=== PATIENT | female | born 1930 ===

== ENCOUNTER 2018-07-27 16:14 | Emergency (ER) | payer MEDICARE, OTHER ==
[2018-07-27 16:14] VITALS: BMI 22.8
--- NOTE | 2018-07-27 18:18 | ED PDOC ---
HPI: Back Time Seen by Provider: 07/27/18 17:06 Chief Complaint (Nursing): Back Pain Chief Complaint (Provider): Neck pain History Per: Patient History/Exam Limitations: no limitations Onset/Duration Of Symptoms: Days (1) Additional Complaint(s): Patient is a 88 y/o female who presents to the ED complaining of worsened neck pain with associated headaches and tingling to her arms since last night. Patient states she had a seizure and since then she has been experiencing all these pain symptoms. Patient appears to be a poor historian with poor insight to her medical conditions. She states that she has been having seizures ever since she received antibiotics for abdominal infection. However, patient is unable to state what the antibiotic medication was, what infection she had, or which shey doll gave her the prescription. Additionally patient reports she had a broken neck and was supposed to be fitted for a neck brace but the brace never arrived. Patient lives alone and has tried to get living assistance but has not received approval by insurance. The last time she was seen by a doctor was [facility] where patient reports that a doctor tried to perform heart surgery on her from the ED; patient has refused to see doctor since then. Patient has a bag of medications and is unable to state why she takes medication or why she is supposed to; she states she doesn't take most because claims they cause seizures. Patient reports she has been having palpitations and feels like her chest is "shaky." Past Medical History Reviewed: Historical Data, Nursing Documentation, Vital Signs Vital Signs: Last Vital Signs Temp 98.6 F 07/27/18 16:20 Pulse 71 07/27/18 16:20 Resp 18 07/27/18 16:20 BP 140/70 07/27/18 16:20 Pulse Ox 98 07/27/18 16:20 - Medical History PMH: Anxiety, Arthritis (chronic hip arthritis), COPD, Hypothyroidism, Multiple Sclerosis, Osteoporosis, Rheumatoid Arthritis Denies: Chronic Kidney Disease - Surgical History Surgical History: Appendectomy, Cholecystectomy - Family History Family History: States: Unknown Family Hx - Immunization History Hx Tetanus Toxoid Vaccination: No Hx Influenza Vaccination: No Hx Pneumococcal Vaccination: No - Home Medications Home Medications: Ambulatory Orders Medication Instructions Recorded Cyclobenzaprine 10 mg PO DAILY 06/12/13 Alprazolam [Xanax] 0.5 mg PO Q12H PRN 06/06/17 Ibuprofen [Motrin] 600 mg PO Q6 PRN #20 tab 06/06/17 Aspirin [Ecotrin] 81 mg PO DAILY #30 06/14/17 Carvedilol [Coreg] 3.125 mg PO BID #60 tab 06/14/17 Clopidogrel [Plavix] 75 mg PO DAILY #30 tab 06/14/17 Levothyroxine [Synthroid] 88 mcg PO DAILY@0630 #30 tab 06/14/17 Losartan [Cozaar] 50 mg PO DAILY #30 tab 06/14/17 Rosuvastatin Calcium [Crestor] 5 mg PO HS #30 tab 06/14/17 Spironolactone [Aldactone] 25 mg PO DAILY #30 tab 06/14/17 - Allergies Allergies/Adverse Reactions: Allergies Allergy/AdvReac Type Severity Reaction Status Date / Time No Known Allergies Allergy Unverified 07/27/18 16:19 Review of Systems ROS Statement: Except As Marked, All Systems Reviewed And Found Negative Constitutional: Negative for: Fever Cardiovascular: Positive for: Palpitations Musculoskeletal: Positive for: Neck Pain Neurological: Positive for: Numbness (tingling in arms), Headache Physical Exam - Reviewed Nursing Documentation Reviewed: Yes Vital Signs Reviewed: Yes - Physical Exam Appears: Positive for: Non-toxic, No Acute Distress (seen on stretcher) Head Exam: Positive for: ATRAUMATIC, NORMOCEPHALIC Skin: Positive for: Normal Color, Warm, DRY Eye Exam: Positive for: EOMI, Normal appearance, PERRL Neck: Positive for: Normal (loose fitting soft collar around neck that appears to provide no support), Painless ROM (Full ROM) Cardiovascular/Chest: Positive for: Regular Rate, Rhythm. Negative for: Murmur Respiratory: Positive for: Normal Breath Sounds. Negative for: Respiratory Distress Gastrointestinal/Abdominal: Positive for: Normal Exam, Soft. Negative for: Tenderness Back: Positive for: Normal Inspection, Vertebral Tenderness (tenderness to palpation on spine) Extremity: Positive for: Normal ROM (full ROM of all extremities), Other (no objective loss of strenght or sensation). Negative for: Pedal Edema, Deformity Neurologic/Psych: Positive for: Alert, primary montessori teacher II-XII (grossly intact), Oriented, C erebellar Tests (intact). Negative for: Motor/Sensory Deficits - Laboratory Results Result Diagrams: 07/27/18 18:13 07/27/18 18:13 - ECG O2 Sat by Pulse Oximetry: 98 (RA) Pulse Ox Interpretation: Normal Medical Decision Making Medical Decision Making: Time: 17:19 Initial Impression: Poor historian with numerous complaints including seizure ac tivity, neck pain, and palpitations Initial Plan: --Due to objective neurologic symptoms and headaches last night will obtain brain and C-spine CT --Basic labs --Reevaluation 2230 Labs, CT Brain, and CT neck show no acute injury. Rib series xrays show no acute problems. Pt to be discharged home. Provided referral to outpatient clinic. Pt given tray of food which she was able to eat without nausea/vomiting. Pt alert and oriented and ambulatory. Return parameters discussed with the patient. Scribe Attestation: Documented by Luis Jackson acting as a scribe for Jada Perez MD Provider Scribe Attestation: All medical record entries made by the Scribe were at my direction and personally dictated by me. I have reviewed the chart and agree that the record accurately reflects my personal performance of the history, physical exam, medical decision making, and the department course for this patient. I have also personally directed, reviewed, and agree with the discharge instructions and disposition. Disposition - Clinical Impression Clinical Impression: Neck pain - Disposition Referrals: [facility] [Outside] Disposition Time: 22:15 Condition: IMPROVED Additional Instructions: Your CT scan of the brain and neck show no new injuries or abnormalities. Your blood work is normal. You have been given medication for nausea and pain and have since been able to eat solid food without difficulty. You have been given a referral for outpatient follow up for care home care of chronic neck pain. Instructions: Chronic Neck Pain (DC) Forms: Rewind Me (Portuguese), Rewind Me (Luxembourgish) Print Language: NEPALI
[2018-07-27 18:26] LABS: BASO % 0.6 % (0.0-2.0); EOS % 0.3 % (0.0-4.0); HEMOGLOBIN 9.9 g/dL (12.0-16.0); LYMPH # 1.4 K/uL (1.0-4.3); LYMPH % 16.6 % (20.0-40.0); MEAN CELL VOLUME 98.6 fl (81.0-99.0); MEAN CORPUSCULAR HEMOGLOBIN 33.7 pg (27.0-31.0); MEAN CORPUSCULAR HGB CONC 34.2 g/dL (33.0-37.0); MEAN PLATELET VOLUME 8.6 fl (7.2-11.7); MONO # 0.5 K/uL (0.0-0.8); NEUT # 6.3 K/uL (1.8-7.0); NEUT % 76.5 % (50.0-75.0); NRBC % 0.1 % (0.0-0.0); RBC 2.94 Mil/uL (3.80-5.20); RED CELL DISTRIBUTION WIDTH 16.5 % (11.5-14.5); WHITE BLOOD COUNT 8.2 K/uL (4.8-10.8)
[2018-07-27 18:37] LABS: ALB/GLOB RATIO 1.4 (1.0-2.1); ALBUMIN 4.2 g/dL (3.5-5.0); ALT/SGPT 31 U/L (9-52); AST/SGOT 47 U/L (14-36); BLOOD UREA NITROGEN 18 mg/dl (7-17); CALCIUM 9.7 mg/dL (8.4-10.2); GFR NON-AFRICAN AMERICAN > 60
[2018-07-27 18:48] LABS: B-TYPE NATRIURETIC PEPTIDE 1410 pg/ml (0-900)
--- NOTE | 2018-07-27 18:50 | CT ---
Date of service: 07/27/2018 PROCEDURE: CT HEAD WITHOUT CONTRAST. HISTORY: possible seizure with continued RODRIGUEZ COMPARISON: Noncontrast head CT 05/30/2014. TECHNIQUE: Axial computed tomography images were obtained through the head/brain without intravenous contrast. Radiation dose: Total exam DLP = 774.23 mGy-cm. This CT exam was performed using one or more of the following dose reduction techniques: Automated exposure control, adjustment of the mA and/or kV according to patient size, and/or use of iterative reconstruction technique. FINDINGS: HEMORRHAGE: No intracranial hemorrhage. BRAIN: Age-appropriate diffuse cerebral atrophy chronic microangiopathy are reiterated. There is no interval mass effect. Good corticomedullary differentiation is preserved and there is no suspicious extra-axial fluid collection. Bilateral basal ganglia calcifications are reiterated.. In addition, scattered punctate calcifications are identified related to the tentorium as well as bilateral cerebellar hemispheres which may reflect prior infectious or inflammatory process. VENTRICLES: Unremarkable. No hydrocephalus. CALVARIUM: Unremarkable. PARANASAL SINUSES: Unremarkable as visualized. No significant inflammatory changes. MASTOID AIR CELLS: Unremarkable as visualized. No inflammatory changes. OTHER FINDINGS: None. IMPRESSION: No acute intracranial findings by standard CT criteria. Postinfectious or postinflammatory sequela are seen related to the tentorium and cerebellum. Age-related neuro degenerative changes appear stable and age-appropriate.
--- NOTE | 2018-07-27 19:07 | CT ---
Date of service: 07/27/2018 PROCEDURE: CT Cervical Spine without contrast HISTORY: worsened neck pain after seizure COMPARISON: None available. TECHNIQUE: Axial computed tomography images were obtained of the cervical spine without the use of intravenous contrast. Coronal and sagittal reformatted images were created and reviewed. Radiation dose: Total exam DLP = 294.90 mGy-cm. This CT exam was performed using one or more of the following dose reduction techniques: Automated exposure control, adjustment of the mA and/or kV according to patient size, and/or use of iterative reconstruction technique. FINDINGS: VERTEBRAE: Reversal cervical curvature without fracture or spondylolisthesis identified. No destructive bony lesion identified. Multilevel cervical spondylosis appreciated predominate the mid inferior levels. Degenerative C1-2 changes are identified with the craniocervical junction unremarkable. The odontoid process appears intact. DISCS/SPINAL CANAL/NEURAL FORAMINA: No significant central canal or neural foraminal stenosis is seen at C2-3. At C3-4, mild right degenerative neural foraminal stenosis appreciated with the remainder unremarkable. At C4-5, moderate to severe right and mild left degenerative neural foraminal stenoses are identified with a disc osteophyte complex encroaching ventral nerve roots most likely but without significant central canal stenosis. At C5-6, a circumferential disc osteophyte complex results in a mild central stenosis with mild facet joint and uncovertebral joint osteophytes resulting in moderate right and mild left degenerative neural foraminal stenoses. At C6-7, there is an additional disc osteophyte complex with a borderline central stenosis resulting. Degenerative osteophytes result in a mild left and borderline right neural foraminal stenosis with no significant stenosis identified at C7-T1. PARASPINAL SOFT TISSUES: Unremarkable. No suspicious bilateral pulmonary apical findings either. Limited biapical pleural fibrosis noted. OTHER FINDINGS: None. IMPRESSION: 1. Reversal of cervical curvature without fracture or spondylolisthesis identified. 2. Mild degenerative spinal stenosis as well as bilateral neural foramina as discussed above. No gross/severe stenosis or gross disc herniation appreciable. MRI can be utilized for added characterization, particularly of the intervertebral discs if clinically warranted.
[2018-07-27 22:41] VITALS: RESP 16; TEMP 98.2
[2018-07-27 22:42] VITALS: BP 128/76; PULSE 75; O2SAT 98
--- NOTE | 2018-07-28 12:30 | RAD ---
Date of service: 07/27/2018 HISTORY: Shortness of breath COMPARISON: No prior. FINDINGS: LUNGS: Accounting for position, no active pulmonary disease. PLEURA: No significant pleural effusion identified, no pneumothorax apparent. CARDIOVASCULAR: Slightly prominent cardiac pericardial silhouette. OSSEOUS STRUCTURES: No significant abnormalities. VISUALIZED UPPER ABDOMEN: Normal. OTHER FINDINGS: None. IMPRESSION: No active disease.
--- NOTE | 2018-07-28 13:40 | RAD ---
Date of service: 07/27/2018 PROCEDURE: Radiographs of the chest and bilateral ribs HISTORY: rib pain COMPARISON: 07/27/2018 single-view chest TECHNIQUE: Frontal radiograph of the chest and multiple oblique radiographs of the bilateral ribs were obtained. FINDINGS: RIGHT RIBS: No fracture or focal lesion visualized. LEFT RIBS: No fracture or focal lesion visualized. LUNGS: Clear. PLEURA: No pneumothorax or pleural fluid. CARDIOVASCULAR: Normal sized heart. No pulmonary vascular congestion. OTHER FINDINGS: None. IMPRESSION: Unremarkable radiographs of the chest and bilateral ribs. No rib fracture. Concordant results with the preliminary interpretation rendered by the emergency department physician procedure.
--- NOTE | 2018-07-28 14:16 | CARD ---
APPROVED REPORT Date of service: 07/27/2018 EKG Measurement Heart [id number] NC [id number] <Conclusion> Sinus bradycardia with 1st degree AV block Left axis deviation Abnormal ECG
== END 2018-07-27 23:08 | disposition home or self-care (01) ==
LOC: H.ER 16:14
DX: M54.2 Cervicalgia (principal); M54.9 Dorsalgia, unspecified; E03.9 Hypothyroidism, unspecified; G35 Multiple sclerosis
CPT/HCPCS: 70450; 71045; 71111; 72125; 80053; 83880; 84484; 85025; 93005; 96374; 96375; 99283; J2270; J2405